=== PATIENT | male | born 1995 | race Caucasian/White ===

== ENCOUNTER 2018-02-21 11:08 | Emergency (ER) | payer OTHER ==
[~2018-02-21] VITALS: Ht 165.1 cm; Wt 78.0 kg
[2018-02-21 11:10] VITALS: BP 147/91
--- NOTE | 2018-02-21 11:14 | NUR ---
PT AMBULATES TO BED 12
--- NOTE | 2018-02-21 11:15 | NUR ---
patient came to the er with lt. thumb injury with circular saw while at work. lt. thumb almost detached from the skin. minimal bleeding. seen by dr. prasad at bedside
--- NOTE | 2018-02-21 11:23 | NUR ---
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 Patient sts "thumb was dangling after saw cut through it and cut through the bone". Bleeding controlled by personal torniquet. Patient sts unknown last tetanus. Patient sts no sensation or unable to move 1st digit of left hand. when tourniquet and wrap removed, bleeding persists, left 1st digit is dangling, appears to have severed the bone, unknown at this time, but bone visualization present. cap refill is less than 3 sec of affected digit. pt is aaox4, gcs 15. rr even and unlabored, lungs bl clear. abd soft, non-tender. skin warm, pink, dry to the touch. er md notified of pt status. pt needs met. safety precautions in place. will continue to monitor.
--- NOTE | 2018-02-21 11:24 | NUR ---
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
[2018-02-21] MEDS ORDERED: NACL 0.9% 1,000 ML IV ONE (11:25)
[2018-02-21] MEDS ORDERED: fentaNYL 0.05 MG/ML VIAL IVP ONE (11:25)
[2018-02-21] MEDS ORDERED: MIDAZOLAM 2 MG/2 ML VIAL IVP ONE (11:30)
--- NOTE | 2018-02-21 11:47 | NUR ---
medicated for pain. patient monitored
[2018-02-21] MEDS ORDERED: ceFAZolin 1,000 MG VIAL ONE (12:43)
--- NOTE | 2018-02-21 12:47 | NUR ---
[place] [facility] [place]
[2018-02-21] MEDS ORDERED: MORPHINE SULFATE 2 MG/ML SYR IVP ONE (13:00)
[2018-02-21] MEDS ORDERED: ONDANSETRON 4 MG/2 ML VIAL IVP ONE (13:00)
--- NOTE | 2018-02-21 13:01 | NUR ---
eta for cook pickled meat in one hour
--- NOTE | 2018-02-21 13:06 | NUR ---
medicated for lt. hand pain by nurse martinez 01/14 continue to monitor
--- NOTE | 2018-02-21 13:48 | NUR ---
awaiting for transport
--- NOTE | 2018-02-21 13:59 | NUR ---
[facility] ARRIVED TO TRANSFER PT TO [facility] ER
[2018-02-21 14:05] VITALS: BP 132/60
--- NOTE | 2018-02-21 14:05 | NUR ---
patient picked up by [facility] [place] [facility] [place] at this time. patient in no distress
== END 2018-02-21 14:05 | disposition short-term general hospital (02) ==
LOC: MED 11:08
DX: S62.292B Other fracture of first metacarpal bone, left hand, initial encounter for open fracture (principal); W45.8XXA Other foreign body or object entering through skin, initial encounter; Y93.89 Activity, other specified; Y92.89 Other specified places as the place of occurrence of the external cause; Y99.8 Other external cause status
CPT/HCPCS: 29125; 73130; 82948; 90471; 90715; 96365; 96375; 99285; J0690; J2250; J2270; J2405; J3010; J7060; Q0092; J7030